=== PATIENT | female | born 1970 | race Caucasian/White ===

== ENCOUNTER 2020-04-26 14:23 | Emergency (ER) | payer BC ==
[~2020-04-26] VITALS: Ht 160 cm; Wt 52.2 kg
[2020-04-26] MEDS ORDERED: SPIRONOLACTONE100 M1 PO (14:51)
[2020-04-26] MEDS ORDERED: NORETHIND-ETH1 EACH PO (14:51)
[2020-04-26 15:44] LABS: URINE BILIRUBIN NEGATIVE (Negative); URINE BLOOD TRACE (Negative); URINE CLARITY CLEAR; URINE COLOR YELLOW; URINE GLUCOSE-RANDOM* 1+ (Negative); URINE KETONES 3+ (Negative); URINE NITRITE-REFLEX NEGATIVE (Negative); URINE PROTEIN (DIPSTICK) NEGATIVE (Negative); URINE UROBILINOGEN 0.2 E.U./dl (0.2-1.0)
[2020-04-26 15:46] LABS: CALCIUM 9.5 mg/dL (8.5-10.1); CREATININE 1.1 mg/dL (0.6-1.0); POTASSIUM 4.2 mmol/L (3.5-5.1)
[2020-04-26 15:47] LABS: URINE LEUKOCYTES-REFLEX 1+ (Negative)
[2020-04-26 15:51] LABS: ABSOLUTE NEUTROPHILS 9.6 thou/uL (1.4-8.2); BASOPHILS 0.2 % (0.0-2.0); EOSINOPHILS 0.1 % (0.0-3.0); HEMATOCRIT 43.1 % (37.0-47.0); HEMOGLOBIN 14.6 gm/dL (12.0-15.0); LYMPHOCYTES 8.2 % (24.0-44.0); MCH 33.7 pg (26.0-34.0); MCV 99.1 fL (80.0-100.0); MONOCYTES 3.9 % (1.0-8.0); PLATELET COUNT 339 thou/uL (150-400); POLYS 87.6 % (36.0-66.0); RBC 4.35 mil/uL (4.20-5.00); RDW 12.8 % (10.5-14.5); WBC 10.9 thou/uL (4.0-11.0)
[2020-04-26 15:59] LABS: SQUAMOUS 4-10 Moderate /LPF (0-3)
[2020-04-26 16:00] LABS: CASTS None Seen /LPF (None Seen); CRYSTALS None Seen /LPF (None Seen); URINE RBC None Seen /HPF (0-2); URINE WBC-REFLEX 0-5 Rare /HPF (0-5)
[2020-04-26] MEDS ORDERED: ZOFRAN ODT4 MG PO (20:31)
[2020-04-26] MEDS ORDERED: MECLIZINE HCL25 MG PO (20:31)
[2020-04-26 20:55] VITALS: BP 143/84
--- NOTE | 2020-04-27 09:04 | EKG ---
[address] [address] ELECTROCARDIOGRAM REPORT Name: MOLLYUMM Room #: DEP ALFREDO Lopez#: [id number] Admission: 04/26/20 Attend Phys: Discharge: 04/26/20 Date of : 72 Report #: [id number] [facility] Test Date: 2020-04-26 Test Time: 16:15:18 Pat Name: UMM BARNES Department: Room: Gender: F Patient Registration Specialist: MAXIMILIANO : 1970 Requested By: Neelam Molina Order Number: [id number] MD: King Carrillo Measurements Intervals [place] Rate: 62 P: 52 MO: 141 QRS: 50 QRSD: 86 T: 31 QT: 459 QTc: 467 Interpretive Statements Sinus rhythm No previous ECG available for comparison Electronically Signed On 04-27-2020 9:04:03 CDT by King Carrillo [email or web address] <ELECTRONICALLY SIGNED> By: King Carrillo MD, [facility] 04/27/20 0904 1615 1615 King Carrillo MD, FACC /EPI
== END 2020-04-26 20:55 | disposition home or self-care (01) ==
LOC: ER 14:23
PROVIDERS: Emergency Medicine
DX: R42 Dizziness and giddiness (principal); R11.2 Nausea with vomiting, unspecified; Z79.899 Other long term (current) drug therapy